=== PATIENT | male | born 1995 | race Caucasian/White ===

== ENCOUNTER 2017-03-19 06:58 | Emergency (ER) | payer OTHER, BC ==
[~2017-03-19] VITALS: Ht 182.9 cm; Wt 106.3 kg
[2017-03-19] MEDS ORDERED: ZOLOFT50 MG PO (08:00)
[2017-03-19] MEDS ORDERED: ZOFRAN ODT4 MG PO (08:43)
[2017-03-19] MEDS ORDERED: NAPROSYN500 MG PO (08:43)
[2017-03-19] MEDS ORDERED: FLEXERIL10 MG PO (08:43)
[2017-03-19 08:57] VITALS: BP 131/82
== END 2017-03-19 08:58 | disposition home or self-care (01) ==
LOC: EME → EDBD 06:58 → EME 08:58
PROC: 3E0234Z Introduction of Serum, Toxoid and Vaccine into Muscle, Percutaneous Approach (ICD-10-PCS; principal; 2017-03-19)
DX: S09.90XA Unspecified injury of head, initial encounter (principal); S00.81XA Abrasion of other part of head, initial encounter; S16.1XXA Strain of muscle, fascia and tendon at neck level, initial encounter; M62.838 Other muscle spasm; V43.52XA Car driver injured in collision with other type car in traffic accident, initial encounter
CPT/HCPCS: 70450; 72125; 99281; 99284